=== PATIENT | male | born 1975 | race Caucasian/White ===

== ENCOUNTER 2017-03-08 10:15 | Day surgery (SDC) | payer OTHER ==
[~2017-03-08] VITALS: Ht 180.3 cm; Wt 99.7 kg
[~2017-03-08 10:15] MED LIST: LIPITOR10 MG PO; LISINOPRIL10 MG PO; NOHOMEMEDS; NORCO 5/3251 TABLET PO; PRILOSEC20 MG PO; WELLBUTRIN75 MG PO; ZANTAC150 MG PO
[2017-03-08] MEDS ORDERED: PROTONIX40 MG PO (10:29)
[2017-03-08 10:35] VITALS: BP 142/76
[2017-03-08 10:41] LABS: EOSINOPHIL (%) 1.5 % (0-5); EOSINOPHIL COUNT 0.1 K/uL (0-0.3); HEMATOCRIT 41.1 % (38.0-50.0); IMMATURE GRANULOCYTE (%) 0.6 % (0.0-0.7); IMMATURE GRANULOCYTE COUNT 0.1 K/uL; INSTRUMENT ABS NEUTROPHIL CT 4.3 K/uL; LYMPHOCYTE COUNT 2.6 K/uL (1.0-2.8); MCHC 34.8 G/DL (30.0-36.0); MCV 86.2 FL (86-99); MEAN PLAT.VOLUME 10.1 uM^3 (9.0-12.4); MONOCYTE (%) 11.2 % (3-12); MONOCYTE COUNT 0.9 K/uL (0-0.8); NEUTROPHIL (%) 54.1 % (45-76); NEUTROPHIL COUNT 4.3 K/uL (1.8-6.4); PLATELET COUNT 287 K/uL (156-360); RBC DIS.WIDTH-CV 12.6 % (11.8-14.6); RBC DIS.WIDTH-SD 39.6 % (39-53); RED BLOOD COUNT 4.77 M/uL (4.00-5.50)
[2017-03-08 10:47] LABS: PROTHROMBIN TIME 11.2 SEC (10.2-12.9)
[2017-03-08 10:49] LABS: PTT 33.6 SEC (25-37)
[2017-03-08 11:15] LABS: ALKALINE PHOSPHATASE 56 IU/L (3-129); ANION GAP 6 MEQ/L (2-14); CHLORIDE 102 MEQ/L (99-109); GFR ESTIMATE (CALCULATED) > 59 mL/min/; GLUCOSE 89 mg/dL (70-99); POTASSIUM 4.7 MEQ/L (3.7-5.4); SAMPLE HEMOLYSIS CHECK 0; SAMPLE ICTERIC CHECK 0; SAMPLE LIPEMIA CHECK 0; SODIUM 141 MEQ/L (136-147); TOTAL BILIRUBIN 0.5 MG/DL (0.0-1.0); UREA NITROGEN (BUN) 22 mg/dL (9-23)
[2017-03-08] MEDS ORDERED: COLACE100 MG PO (13:06)
[2017-03-08] MEDS ORDERED: PROMETHAZINE HC25 M1 PO (13:06)
[2017-03-08] MEDS ORDERED: NORCO 5/3251 TABLET PO (13:06)
[2017-03-08] MEDS ORDERED: MOTRIN600 MG PO (13:06)
[2017-03-08 13:40] VITALS: BP 160/85
[2017-03-08 14:11] VITALS: BP 150/90
== END 2017-03-08 14:15 | disposition home or self-care (01) ==
LOC: SDC 10:15
PROVIDERS: Thoracic Surgery (Cardiothoracic Vascular Surgery)
PROC: 0JB70ZZ Excision of Back Subcutaneous Tissue and Fascia, Open Approach (ICD-10-PCS; principal; 2017-03-08)
DX: D17.1 Benign lipomatous neoplasm of skin and subcutaneous tissue of trunk (principal); I10 Essential (primary) hypertension; E78.5 Hyperlipidemia, unspecified; F32.9 Major depressive disorder, single episode, unspecified; Z87.11 Personal history of peptic ulcer disease; Z87.891 Personal history of nicotine dependence; Z82.49 Family history of ischemic heart disease and other diseases of the circulatory system
CPT/HCPCS: 80053; 85025; 85610; 85730; 88304; J0690; J1885; J2250; J3010

== ENCOUNTER 2017-03-28 08:51 | Day surgery (SDC) | payer OTHER ==
[~2017-03-28] VITALS: Ht 180.3 cm; Wt 97.8 kg
[~2017-03-28 08:51] MED LIST changes: +COLACE100 MG PO; +MOTRIN600 MG PO; +PROMETHAZINE HC25 M1 PO; +PROTONIX40 MG PO; +WELLBUTRIN100 MG PO; -WELLBUTRIN75 MG PO
[2017-03-28 09:39] VITALS: BP 138/76
[2017-03-28] MEDS ORDERED: NORCO 5/3251 TABLET PO (12:49)
[2017-03-28] MEDS ORDERED: COLACE100 MG PO (12:49)
[2017-03-28 13:50] VITALS: BP 150/82
[2017-03-28 14:30] VITALS: BP 138/87
== END 2017-03-28 14:45 | disposition home or self-care (01) ==
LOC: SDC 08:51
PROC: 0JB90ZZ Excision of Buttock Subcutaneous Tissue and Fascia, Open Approach (ICD-10-PCS; principal; 2017-03-28)
DX: D17.1 Benign lipomatous neoplasm of skin and subcutaneous tissue of trunk (principal); I10 Essential (primary) hypertension; E78.5 Hyperlipidemia, unspecified; F32.9 Major depressive disorder, single episode, unspecified; Z82.49 Family history of ischemic heart disease and other diseases of the circulatory system; Z87.891 Personal history of nicotine dependence
CPT/HCPCS: 88304; 93005; J0690; J1170; J1885; J2250; J2405; J2710; J3010